=== PATIENT | female | born 1975 | race Asian ===

== ENCOUNTER 2016-10-01 12:31 | Outpatient (CLI) | payer OTHER | END 2016-10-01 23:37 | disposition home or self-care (01) | LOC: RAD 12:31 | DX: M25.521 Pain in right elbow (principal) ==

== ENCOUNTER 2017-02-25 08:59 | Emergency (ER) | payer OTHER ==
[~2017-02-25] VITALS: Ht 154.9 cm; Wt 68.0 kg
[2017-02-25 09:48] LABS: PLATELET COUNT 152 K/uL (152-353)
[2017-02-25 09:59] LABS: POTASSIUM 3.2 mmol/L (3.6-5.2); SODIUM 135 mmol/L (136-145)
[2017-02-25 10:25] VITALS: BP 125/81; TEMP 97.8
== END 2017-02-25 10:25 | disposition home or self-care (01) ==
LOC: ED 08:59
DX: J18.8 Other pneumonia, unspecified organism (principal)
CPT/HCPCS: 36415; 80053; 82550; 84484; 85027; 86318; 93005; 99283; J1642

== ENCOUNTER 2018-09-07 01:57 | Emergency (ER) | payer OTHER ==
[~2018-09-07] VITALS: Ht 177.8 cm; Wt 68.0 kg
[2018-09-07 03:13] LABS: PLATELET COUNT 240 K/uL (152-353)
[2018-09-07 03:42] LABS: POTASSIUM 3.2 mmol/L (3.6-5.2)
[2018-09-07 04:36] VITALS: BP 157/79; TEMP 98.1
== END 2018-09-07 04:38 | disposition home or self-care (01) ==
LOC: ED 01:57
PROVIDERS: Family Medicine
DX: K50.90 Crohn's disease, unspecified, without complications (principal)
CPT/HCPCS: 74022; 80053; 82272; 85027; 85651; 96360; 96375; 96376; 99284; J1642; J2175; J2550; J3490

== ENCOUNTER 2018-11-11 20:29 | Emergency (ER) | payer OTHER ==
[~2018-11-11] VITALS: Ht 152.4 cm; Wt 77.6 kg
[2018-11-11] MEDS ORDERED: LISITAB PO (20:49)
[2018-11-11] MEDS ORDERED: LISI10TA11 PO (20:50)
[2018-11-11 21:33] VITALS: BP 139/89; TEMP 98.1
== END 2018-11-11 21:33 | disposition home or self-care (01) ==
LOC: ED 20:29
DX: K08.89 Other specified disorders of teeth and supporting structures (principal)
CPT/HCPCS: 96372; 99282; J1885

== ENCOUNTER 2020-03-29 10:10 | Outpatient (CLI) | payer OTHER ==
[~2020-03-29 10:10] MED LIST: LISI10TA11 PO; LISITAB PO
[2020-03-29 11:18] LABS: PLATELET COUNT 186 K/uL (152-353)
== END 2020-03-29 19:03 | disposition home or self-care (01) ==
LOC: LABW 10:10
PROVIDERS: Internal Medicine Gastroenterology
DX: R94.5 Abnormal results of liver function studies (principal); K50.10 Crohn's disease of large intestine without complications
CPT/HCPCS: 36415; 80053; 80074; 82103; 82172; 82247; 82248; 82390; 82525; 82728; 82977; 83010; 83516; 83540; 83550; 83883; 84460; 84466; 85027; 85610; 85651; 86038; 86140

== ENCOUNTER 2020-04-10 08:42 | Outpatient (CLI) | payer OTHER | END 2020-04-10 22:35 | disposition home or self-care (01) | LOC: US 08:42 | DX: R94.5 Abnormal results of liver function studies (principal) ==

== ENCOUNTER 2021-04-16 17:38 | Outpatient (CLI) | payer OTHER | END 2021-04-16 21:48 | disposition home or self-care (01) | LOC: RAD 17:38 | PROVIDERS: ATTEND Nurse Practitioner Family | DX: M07.60 Enteropathic arthropathies, unspecified site (principal); M79.641 Pain in right hand; M79.642 Pain in left hand; M79.671 Pain in right foot; M79.672 Pain in left foot ==

== ENCOUNTER 2022-10-30 14:58 | Outpatient (CLI) | payer OTHER | END 2022-10-30 19:33 | disposition home or self-care (01) | LOC: RAD 14:58 | PROVIDERS: ATTEND Nurse Practitioner Family | DX: M54.2 Cervicalgia (principal); M79.641 Pain in right hand; M79.671 Pain in right foot; M79.672 Pain in left foot; Z79.69 Long term (current) use of other immunomodulators and immunosuppressants ==